=== PATIENT | male | born 1950 | race Native Hawaiian/Other Pacific Islander ===

== ENCOUNTER 2018-07-19 11:51 | Outpatient (CLI) | payer OTHER | END 2018-07-19 11:52 | disposition home or self-care (01) | LOC: C.LAB 11:51 | DX: M06.079 Rheumatoid arthritis without rheumatoid factor, unspecified ankle and foot (principal) ==

== ENCOUNTER 2018-07-19 11:57 | Outpatient (CLI) | payer OTHER | END 2018-07-19 11:58 | disposition home or self-care (01) | LOC: C.LAB 11:57 ==